=== PATIENT | male | born 1955 | race Caucasian/White ===

== ENCOUNTER 2024-06-10 16:44 | Inpatient (IN) ==
[2024-06-10 17:59] LABS: ABS Basophils 0.1 10^3/uL (0.0-0.1); ABS Eosinophils 0.1 10^3/uL (0.0-0.5); ABS Lymphocytes 0.9 10^3/uL (1.0-4.8); ABS Monocytes 0.5 10^3/uL (0.0-1.1); ABS Neutrophils 3.4 10^3/uL (1.5-7.6); Eosinophil % 2.8 %; Hematocrit 41.6 % (38-53); Hemoglobin 13.4 g/dL (13.2-16.3); Lymphocyte % 17.9 %; Mean Corpuscular Hemoglobin 29.2 pg (27-33); Mean Corpuscular Hgb Conc 32.2 g/dL (31-36); Mean Corpuscular Volume 90.9 fL (80-97); Platelet Count 213 10^3/uL (150-450); Red Blood Count 4.58 10^6/uL (4.06-5.63); Red Cell Distribution Width 22.1 % (12-17)
[2024-06-10 18:09] LABS: Activated Partial Thrombo Time 31.6 seconds (26.0-38.0); INR 1.63 (0.85-1.14)
[2024-06-10 18:10] LABS: PCO2 Arterial 57 mmHg (35-45); PO2 Arterial 75 mmHg (80-100)
[2024-06-10 18:25] LABS: Albumin 3.5 g/dL (3.5-5.7); Albumin/Globulin Ratio 0.9 (1-3); C Reactive Protein 15.72 mg/L (<8.01); Calcium 9.6 mg/dL (8.6-10.3); Creatinine, Serum 0.78 mg/dL (0.67-1.17); Globulin 3.9 g/dL (2-4); Total Bilirubin 1.1 mg/dL (0.2-1.0); Total Protein 7.4 g/dL (6.4-8.9); eGFR CKD-EPI 97.7 (>60)
[2024-06-10 19:18] LABS: High Sensitivity Troponin 1 Hr 7 pg/mL (<20)
[2024-06-10] MEDS: Iodixanol 320 (CONTRAST) 100 ML SDV IV ONE (19:40)
[2024-06-10 20:06] LABS: Urine Appearance Turbid; Urine Bilirubin Negative (Negative); Urine Blood Negative (Negative); Urine Color Yellow; Urine Glucose Negative (Negative); Urine Ketones Negative (Negative); Urine Nitrite Negative (Negative); Urine Protein Negative (Negative); Urine Urobilinogen Negative (Negative); Urine pH 5.5 (5.0-8.0)
[2024-06-10 20:11] LABS: Urine Bacteria 1+ /HPF (Absent); Urine Red Blood Cell 1+(3-5/hpf) /HPF (0-Trace); Urine White Blood Cell 3+(>20/hpf) /HPF (0-Trace)
[2024-06-10] MEDS: Lactulose 30 ml UDC PO ONE (21:07)
[2024-06-10] MEDS: NS 0.9% 1000 ml BAG 1,000 ML IV SCH (22:40)
[2024-06-10] MEDS: Enoxaparin 40 MG/0.4 ML SYR SUBCUT SCH (22:54)
[2024-06-11] MEDS: Lactulose 30 ml UDC PO SCH (02:20)
[2024-06-11] MEDS: Potassium Chlor 20 meq TAB.ER PO SCH ×2 (11:45→12:17)
[2024-06-11] MEDS: CMCS: Brimonidine/Timolol 0.2%/0.5% OPTH(NF) SOL 5 ML BOTH EYES SCH (11:48)
[2024-06-11 11:51] LABS: ABS Eosinophils 0.1 10^3/uL (0.0-0.5); ABS Lymphocytes 0.6 10^3/uL (1.0-4.8); ABS Monocytes 0.6 10^3/uL (0.0-1.1); ABS Neutrophils 7.2 10^3/uL (1.5-7.6); Eosinophil % 0.6 %; Hematocrit 42.2 % (38-53); Hemoglobin 13.4 g/dL (13.2-16.3); Lymphocyte % 7.3 %; Mean Corpuscular Hemoglobin 29.1 pg (27-33); Mean Corpuscular Hgb Conc 31.9 g/dL (31-36); Mean Corpuscular Volume 91.2 fL (80-97); Mean Platelet Volume 7.2 fL (7.5-11.2); Platelet Count 185 10^3/uL (150-450); Red Blood Count 4.62 10^6/uL (4.06-5.63); Red Cell Distribution Width 21.9 % (12-17); White Blood Count 8.6 10^3/uL (3.6-10.2)
[2024-06-11 12:48] LABS: TSH Ultra Thyroid Stim Horm 0.56 mcIU/mL (0.34-5.60)
[2024-06-11 13:00] LABS: Vitamin B12 303 pg/mL (180-914)
[2024-06-11 14:13] LABS: ALT 9 U/L (7-52); Albumin 3.3 g/dL (3.5-5.7); Albumin/Globulin Ratio 0.9 (1-3); Alkaline Phosphatase 98 U/L (35-149); Anion Gap 16 mmol/L (2-16); Blood Urea Nitrogen 13 mg/dL (6-24); CO2 Carbon Dioxide 28 mmol/L (22-32); Calcium 9.4 mg/dL (8.6-10.3); Chloride 103 mmol/L (101-111); Creatinine, Serum 0.87 mg/dL (0.67-1.17); Globulin 3.6 g/dL (2-4); Glucose 133 mg/dL (70-100); Magnesium 1.4 mg/dL (1.9-2.7); Sodium 147 mmol/L (135-145); Total Bilirubin 1.4 mg/dL (0.2-1.0); Total Protein 6.9 g/dL (6.4-8.9); eGFR CKD-EPI 94.6 (>60)
[2024-06-11 14:56] LABS: Urine Appearance Turbid; Urine Bilirubin Negative (Negative); Urine Blood Negative (Negative); Urine Color Yellow; Urine Glucose Negative (Negative); Urine Ketones Negative (Negative); Urine Nitrite Negative (Negative); Urine Protein Trace (Negative); Urine Specific Gravity 1.033 (1.002-1.030); Urine Urobilinogen Negative (Negative); Urine pH 5.5 (5.0-8.0)
[2024-06-11 15:09] LABS: Urine Bacteria 1+ /HPF (Absent); Urine Red Blood Cell 1+(3-5/hpf) /HPF (0-Trace); Urine Squamous Epithelial Cell Present /HPF (Absent); Urine White Blood Cell 3+(>20/hpf) /HPF (0-Trace)
[2024-06-11] MEDS: Insulin GLARGINE 100 un/ml 10 ml VIAL SUBCUT SCH (20:28)
[2024-06-11] MEDS: Latanoprost 0.005% 2.5 ml BTL BOTH EYES SCH (20:36)
[2024-06-11 21:09] LABS: Potassium Redraw 4.1 mmol/L (3.5-5.0)
[2024-06-12 06:14] LABS: Mean Corpuscular Hemoglobin 29.3 pg (27-33); Mean Corpuscular Hgb Conc 32.6 g/dL (31-36); Mean Corpuscular Volume 89.9 fL (80-97); Platelet Count 179 10^3/uL (150-450); Red Blood Count 4.11 10^6/uL (4.06-5.63); Red Cell Distribution Width 21.8 % (12-17); White Blood Count 5.3 10^3/uL (3.6-10.2)
[2024-06-12 06:34] LABS: Albumin/Globulin Ratio 0.9 (1-3); Calcium 8.5 mg/dL (8.6-10.3); Creatinine, Serum 0.7 mg/dL (0.67-1.17); Globulin 3.3 g/dL (2-4); Magnesium 1.3 mg/dL (1.9-2.7); Potassium 3.9 mmol/L (3.5-5.0); Total Bilirubin 1.4 mg/dL (0.2-1.0); Total Protein 6.3 g/dL (6.4-8.9)
[2024-06-12] MEDS: Magnesium Sulf 4 GM/100 ML IV 4,000 MG/100 ML BAG IVPB ONE (10:19)
[2024-06-12] MEDS: Nystatin TOP POWDER 15 GM BTL TOPICAL SCH (13:29)
[2024-06-13 05:35] LABS: Hematocrit 37.5 % (38-53); Mean Corpuscular Hemoglobin 28.8 pg (27-33); Mean Corpuscular Hgb Conc 31.9 g/dL (31-36); Mean Corpuscular Volume 90.3 fL (80-97); Mean Platelet Volume 6.9 fL (7.5-11.2); Platelet Count 179 10^3/uL (150-450); Red Blood Count 4.15 10^6/uL (4.06-5.63); Red Cell Distribution Width 21.5 % (12-17); White Blood Count 4.4 10^3/uL (3.6-10.2)
[2024-06-13 06:15] LABS: Calcium 8.5 mg/dL (8.6-10.3); Creatinine, Serum 0.72 mg/dL (0.67-1.17); Magnesium 1.7 mg/dL (1.9-2.7); Potassium 3.9 mmol/L (3.5-5.0); eGFR CKD-EPI 100.1 (>60)
[2024-06-13] MEDS ORDERED: Zosyn per Pharmacy NOTE FOLLOW UP SCH ×2 (15:00)
[2024-06-13] MEDS: CMCS:Minocycline 50 mg CAP (NF) PO SCH (15:55)
[2024-06-13] MEDS: ZOSYN 3.375 GM x ONE DOSE over 30 miuntes IV (16:00)
[2024-06-13] MEDS: ZOSYN 3.375 GM Q8H per EXTENDED INFUSION IV SCH (20:43)
[2024-06-13 23:11] LABS: PCO2 Arterial 46 mmHg (35-45); PO2 Arterial 111 mmHg (80-100)
[2024-06-13] MEDS: Lactulose 30 ml UDC PO ONE (23:26)
[2024-06-14 05:53] LABS: ABS Eosinophils 0.2 10^3/uL (0.0-0.5); ABS Lymphocytes 0.9 10^3/uL (1.0-4.8); ABS Monocytes 0.6 10^3/uL (0.0-1.1); ABS Neutrophils 3.3 10^3/uL (1.5-7.6); ABS Nucleated RBC 0.01 10^3/ul; Eosinophil % 3.4 %; Hematocrit 39.6 % (38-53); Hemoglobin 12.8 g/dL (13.2-16.3); Lymphocyte % 18.5 %; Mean Corpuscular Hemoglobin 29.4 pg (27-33); Mean Corpuscular Hgb Conc 32.5 g/dL (31-36); Mean Corpuscular Volume 90.7 fL (80-97); Nucleated Red Blood Cells % 0.1 %/100WBC (0.0-0.8); Platelet Count 182 10^3/uL (150-450); Red Blood Count 4.36 10^6/uL (4.06-5.63); Red Cell Distribution Width 21.5 % (12-17)
[2024-06-14 06:07] LABS: Albumin 3.1 g/dL (3.5-5.7); Albumin/Globulin Ratio 0.9 (1-3); Calcium 8.9 mg/dL (8.6-10.3); Creatinine, Serum 0.73 mg/dL (0.67-1.17); Globulin 3.4 g/dL (2-4); Magnesium 1.5 mg/dL (1.9-2.7); Potassium 3.8 mmol/L (3.5-5.0); Total Bilirubin 1.3 mg/dL (0.2-1.0); Total Protein 6.5 g/dL (6.4-8.9); eGFR CKD-EPI 99.7 (>60)
[2024-06-14] MEDS: Lactulose 30 ml UDC PO SCH (10:45)
[2024-06-14] MEDS: Lactulose 300 ML for PR 200 GM/300 ML BTL PR SCH (13:53)
[2024-06-15 05:57] LABS: ABS Basophils 0.1 10^3/uL (0.0-0.1); ABS Eosinophils 0.2 10^3/uL (0.0-0.5); ABS Lymphocytes 0.8 10^3/uL (1.0-4.8); ABS Monocytes 0.5 10^3/uL (0.0-1.1); ABS Neutrophils 3.7 10^3/uL (1.5-7.6); Eosinophil % 3.9 %; Hematocrit 39.7 % (38-53); Hemoglobin 12.9 g/dL (13.2-16.3); Lymphocyte % 14.8 %; Mean Corpuscular Hemoglobin 29.3 pg (27-33); Mean Corpuscular Hgb Conc 32.4 g/dL (31-36); Mean Corpuscular Volume 90.4 fL (80-97); Mean Platelet Volume 7.1 fL (7.5-11.2); Platelet Count 189 10^3/uL (150-450); Red Blood Count 4.39 10^6/uL (4.06-5.63); Red Cell Distribution Width 21.4 % (12-17); White Blood Count 5.3 10^3/uL (3.6-10.2)
[2024-06-15 06:28] LABS: Albumin 2.9 g/dL (3.5-5.7); Albumin/Globulin Ratio 0.9 (1-3); Calcium 8.7 mg/dL (8.6-10.3); Creatinine, Serum 0.71 mg/dL (0.67-1.17); Globulin 3.4 g/dL (2-4); Magnesium 1.5 mg/dL (1.9-2.7); Potassium 3.1 mmol/L (3.5-5.0); Total Bilirubin 1.4 mg/dL (0.2-1.0); Total Protein 6.3 g/dL (6.4-8.9); eGFR CKD-EPI 100.6 (>60)
[2024-06-15] MEDS: Magnesium Sulf 4 GM/100 ML IV 4,000 MG/100 ML BAG IVPB ONE (09:52)
[2024-06-16 06:05] LABS: ABS Basophils 0.1 10^3/uL (0.0-0.1); ABS Eosinophils 0.3 10^3/uL (0.0-0.5); ABS Monocytes 0.5 10^3/uL (0.0-1.1); ABS Neutrophils 2.9 10^3/uL (1.5-7.6); ABS Nucleated RBC 0.01 10^3/ul; Eosinophil % 6.1 %; Hematocrit 36.7 % (38-53); Hemoglobin 11.9 g/dL (13.2-16.3); Lymphocyte % 20.8 %; Mean Corpuscular Hemoglobin 29.3 pg (27-33); Mean Corpuscular Hgb Conc 32.5 g/dL (31-36); Mean Corpuscular Volume 90.2 fL (80-97); Mean Platelet Volume 7.1 fL (7.5-11.2); Nucleated Red Blood Cells % 0.1 %/100WBC (0.0-0.8); Platelet Count 186 10^3/uL (150-450); Red Blood Count 4.07 10^6/uL (4.06-5.63); White Blood Count 4.8 10^3/uL (3.6-10.2)
[2024-06-16 06:28] LABS: Albumin 2.8 g/dL (3.5-5.7); Albumin/Globulin Ratio 0.9 (1-3); Calcium 7.9 mg/dL (8.6-10.3); Creatinine, Serum 0.64 mg/dL (0.67-1.17); Globulin 3.2 g/dL (2-4); Magnesium 1.6 mg/dL (1.9-2.7); Potassium 3.8 mmol/L (3.5-5.0); Total Bilirubin 1.2 mg/dL (0.2-1.0); eGFR CKD-EPI 103.8 (>60)
[2024-06-16] MEDS: Lactulose 30 ml UDC PO SCH (10:00)
[2024-06-17 06:41] LABS: Hematocrit 39.4 % (38-53); Hemoglobin 12.8 g/dL (13.2-16.3); Mean Corpuscular Hemoglobin 29.4 pg (27-33); Mean Corpuscular Hgb Conc 32.4 g/dL (31-36); Mean Corpuscular Volume 90.7 fL (80-97); Mean Platelet Volume 7.2 fL (7.5-11.2); Platelet Count 184 10^3/uL (150-450); Red Blood Count 4.34 10^6/uL (4.06-5.63); Red Cell Distribution Width 20.1 % (12-17); White Blood Count 6.2 10^3/uL (3.6-10.2)
[2024-06-17 06:59] LABS: Calcium 8.1 mg/dL (8.6-10.3); Creatinine, Serum 0.64 mg/dL (0.67-1.17); Magnesium 1.7 mg/dL (1.9-2.7); Potassium 4.3 mmol/L (3.5-5.0); eGFR CKD-EPI 103.8 (>60)
[2024-06-17] MEDS: Magnesium Sulf 4 GM/100 ML IV 4,000 MG/100 ML BAG IVPB ONE (08:58)
[2024-06-18 08:51] LABS: Hematocrit 39.9 % (38-53); Hemoglobin 12.9 g/dL (13.2-16.3); Mean Corpuscular Hemoglobin 29.4 pg (27-33); Mean Corpuscular Hgb Conc 32.3 g/dL (31-36); Mean Corpuscular Volume 90.8 fL (80-97); Mean Platelet Volume 7.2 fL (7.5-11.2); Platelet Count 205 10^3/uL (150-450); Red Cell Distribution Width 19.7 % (12-17); White Blood Count 6.4 10^3/uL (3.6-10.2)
[2024-06-18 09:33] LABS: Calcium 8.4 mg/dL (8.6-10.3); Creatinine, Serum 0.67 mg/dL (0.67-1.17); Magnesium 1.8 mg/dL (1.9-2.7); Potassium 4.5 mmol/L (3.5-5.0); eGFR CKD-EPI 102.3 (>60)
[2024-06-18] MEDS: Insulin GLARGINE 100 un/ml 10 ml VIAL SUBCUT SCH (22:16)
[2024-06-19 06:39] LABS: Hematocrit 39.2 % (38-53); Hemoglobin 12.8 g/dL (13.2-16.3); Mean Corpuscular Hemoglobin 29.6 pg (27-33); Mean Corpuscular Hgb Conc 32.6 g/dL (31-36); Mean Corpuscular Volume 90.8 fL (80-97); Mean Platelet Volume 6.8 fL (7.5-11.2); Platelet Count 212 10^3/uL (150-450); Red Blood Count 4.31 10^6/uL (4.06-5.63); Red Cell Distribution Width 19.9 % (12-17); White Blood Count 5.5 10^3/uL (3.6-10.2)
[2024-06-19 07:15] LABS: Albumin/Globulin Ratio 0.9 (1-3); Calcium 8.4 mg/dL (8.6-10.3); Creatinine, Serum 0.69 mg/dL (0.67-1.17); Globulin 3.5 g/dL (2-4); Magnesium 1.5 mg/dL (1.9-2.7); Potassium 4.3 mmol/L (3.5-5.0); Total Bilirubin 0.9 mg/dL (0.2-1.0); Total Protein 6.5 g/dL (6.4-8.9); eGFR CKD-EPI 101.4 (>60)
[2024-06-19] MEDS: Magnesium Sulf 4 GM/100 ML IV 4,000 MG/100 ML BAG IVPB ONE (08:42)
[2024-06-19 10:07] LABS: Rapid COVID-19 Molecular Undetected (Undetected)
[2024-06-19 14:21] VITALS: BP 119/68
[2024-06-20] MEDS ORDERED: Potassium Chlor 20 meq TAB.ER PO SCH (14:30)
== END 2024-06-19 15:50 | DRG 441 ==
LOC: ED 16:44 → EDHOLD 16:44 → SUATTDRO 21:42 → INTOOBSV 21:42 → OBSVTOIN 21:42 → MEDTELE 06-11 08:51
PROVIDERS: ADMIT Internal Medicine; ATTEND Internal Medicine